=== PATIENT | female | born 1955 | race Caucasian/White ===

== ENCOUNTER → 2021-04-11 09:08 | Outpatient (BNVA) | payer MEDICARE, OTHER, SELFPAY | PROVIDERS: Family Provider Nurse Practitioner Family; PCP Family Medicine; Visit Provider Orthopaedic Surgery | DX: S52.132D Displaced fracture of neck of left radius, subsequent encounter for closed fracture with routine healing (principal); X58.XXXD Exposure to other specified factors, subsequent encounter | CPT/HCPCS: 73080 ==

== ENCOUNTER 2021-05-03 12:52 | Outpatient (CLI) | payer MEDICARE, OTHER, SELFPAY ==
--- NOTE | 2021-05-03 17:54 | ONC CON_ITS ---
Dr. Galicia New Patient Note Patient: Abena Anton Unit #: [id number]: 1955 Dicatated By: Rigo Galicia M.D.Date of Visit: May 03, 2021 Onc MED New Patient/Consult Referring Physician: JESSICA Iqbal Chief Complaint: Anemia. History of Present Illness: This is a 66-year-old woman with iron deficiency anemia. This patient has a longstanding history of anemia. She recalls that when she had her hysterectomy at age 35 it was done primarily because of anemia. She has been seeing Genie Gil for primary care. The available records include a CBC from an emergency room visit on 11/09/2020 which showed her hemoglobin low at 6.2 g with hematocrit 25%. The red cell indices were hypochromic/microcytic with MCV 62.5 and MCH 15.5. The white blood cell count was 6200. The platelet count was slightly elevated at 476,000. She was transfused 1 unit PRBC. At the time she had been taking an iron supplement 3 times a day. She had several subsequent blood counts, all showing similar findings. The most recent, from 04/07/2021 showed moderately severe anemia with hemoglobin 8.7 g and hematocrit 34.0%. The red cell indices were again hypochromic/microcytic. The white blood cell count was 6500 and the platelet count was 467,000. Her ferritin was low at 2 ng/mL, consistent with iron deficiency. She actually has been feeling pretty good generally. She reports having pretty normal energy and normal activity. Her ECOG score is 0. Her appetite has been okay. She has been trying to lose weight. She does not have fever, night sweats, or hot flashes. She has been on antibiotic therapy for sinus infection, and she was also treated for a fever blister. She has not had sore throat or difficulty swallowing. She does not complain of cough, and she has not been having shortness of breath or chest pain. She currently has no GI or complaints. She has not been aware of any blood in the stool or black stools. She has had a previous colonoscopy, and she is scheduled to have EGD and colonoscopy. She has had 3 back surgeries and she does have occasional backache. She has no other joint or bone pain. She does have headaches associated with trigeminal neuralgia. She has no focal neurologic symptoms. She has had some anxiety and depression since her . Past Medical History: Her medical history includes anemia, anxiety, degenerative arthritis, degenerative disease of the spine, depression, hypertension, hypothyroidism, multinodular goiter, and trigeminal neuralgia. Past Surgical History: Her surgical/procedural history includes back surgery x 3, Caesarean section x 2, cerebral microvascular decompression, cholecystectomy, hysterectomy/bilateral salpingectomy-oophorectomy, tubal ligation, and appendectomy in 1965. Medications: Aspirin 81 1 Tablet (of 81 mg) Tablet, chewable Oral daily, buPROPion HCl ER (XL) 1 Tablet (of 350 mg) Tablet SR 24 HR Oral b.i.d., Hjhahqeyxk-LNUG-Qeni-Cod 1 - 2 (79-969-27-30 mg) Capsule Oral PRN, Cyclobenzaprine HCl Tablet Oral, dilTIAZem HCl ER Coated Beads 1 Capsule (of 180 mg) Capsule SR 24 HR Oral daily, Ferrex 150 1 Capsule (of 150 mg) Oral t.i.d., Hair/Skin/Nails Tablet Oral daily, Levothyroxine Sodium 1 Tablet (of 75 mcg) Oral daily, Vitamin 1 Tablet Oral daily, Soma Tablet Oral PRN, valACYclovir HCl 2 Tablet (of 500 mg) Oral b.i.d., Vitamin D2 1 Capsule (of 50 mcg ) Tablet Oral q 2 weeks Allergies: Cyclobenzaprine HCl and traMADol HCl. Social History: Ms. Anton is . She she is a retired educator. She is a non-smoker. She does not drink alcohol. Family History: Father of lung cancer at age 82. Her mother with Alzheimer's dementia. She has 4 sisters, all of whom have diabetes. She is not aware of any history of anemia in the family. Review Of Symptoms: Constitutional - She reports having good energy, and she has normal activity. Her appetite has been okay. She has been trying to lose weight. She does not have fever, night sweats, or hot flashes. ECOG score is 0, Eyes - No change in vision, ENMT - No hearing loss or tinnitus. She has been on treatment for sinus infection, and she also recently had treatment for a fever blister. No sore throat or difficulty swallowing, Hematologic/Lymphatic - No abnormal bruising or bleeding, Respiratory - No shortness of breath. No cough. No pleuritic pain or hemoptysis, Cardiovascular - No angina pain. No palpitations, Gastrointestinal - No nausea or vomiting. No heartburn or acid reflux. No diarrhea or constipation. She has not been aware of any blood in the stool or black stools. She is scheduled to have an EGD and colonoscopy, Genitourinary (F) - No dysuria or hematuria. No urinary frequency. No urgency or incontinence, Musculoskeletal - She has had 3 back surgeries. She occasionally has backache. She has no other joint or bone pain, Integumentary - No skin rash or other skin changes, Neurologic - She still has headaches associated with a trigeminal neuralgia. No dizziness. No numbness or tingling. No other focal neurologic symptoms, Psychiatric - She has had anxiety and depression since her . No insomnia. Vital Signs: Performed on May 03, 2021 15:46: 65.00 in, 164/90 mm(hg) (HIGH), Performed on May 03, 2021 15:45: 3, 0, 34.28 (HIGH), 2.00 sq.m, 98 %, 105 /min (HIGH), 18 /min, 97.6 F (LOW), and 206.0 lbs (HIGH). Physical Examination: Constitutional - She looks a little pale, she otherwise appears to be in good general health, Eyes - Sclerae nonicteric. Conjunctivae clear, ENMT - No lesions noted in the oral cavity, Neck - No mass or thyromegaly, Hematologic/Lymphatic - No cervical, clavicular, or axillary adenopathy, Respiratory - Lungs are clear with good air movement bilaterally, Cardiovascular - Heart rhythm is regular. There is a I/ systolic murmur. There is no gallop or rub noted, Abdomen - Soft and non-tender. Liver and spleen are not enlarged. There is no abdominal mass or ascites noted and there is no inguinal adenopathy, Back/Spine - No spine or CVA tenderness noted, Extremities - No edema. Pedal pulses are palpable bilaterally, Integumentary - No rashes. No suspicious skin lesions noted, Neurologic - No focal neurologic deficits noted. Problem List: 1. Iron deficiency anemia which has not responded to an adequate trial of oral iron supplementation. 2. Hypertension. 3. Hypothyroidism. 4. History of multinodular goiter. 5. Trigeminal neuralgia. 6. Degenerative arthritis/degenerative disease of the spine. 7. Anxiety/depression. Problems Addressed with this Encounter and Plan: Patient with longstanding iron deficiency anemia. The cause is uncertain, but it appears to most likely be due to inadequate oral iron absorption, as she has not had any apparent blood loss and the anemia has not improved despite adequate oral iron replacement. As such, I will arrange for parenteral iron replacement to be administered as an outpatient at [facility], subject to verification of insurance coverage. I will also schedule 4-week interval follow-up CBC and serum iron studies with Genie Gil. Signed By: Rigo Galicia M.D. <<Signature on File>>
== END 2021-05-03 12:53 | disposition home or self-care (01) ==
PROVIDERS: PCP Registered Nurse; Visit Provider Internal Medicine Hematology & Oncology
DX: D50.9 Iron deficiency anemia, unspecified (principal); I10 Essential (primary) hypertension; E03.9 Hypothyroidism, unspecified; G50.0 Trigeminal neuralgia; G31.89 Other specified degenerative diseases of nervous system; F41.9 Anxiety disorder, unspecified; F32.A Depression, unspecified; Z79.899 Other long term (current) drug therapy
CPT/HCPCS: 99204

== ENCOUNTER 2021-06-05 08:11 | Outpatient (CLI) | payer MEDICARE, OTHER, SELFPAY ==
--- NOTE | 2021-06-05 08:29 | MM_ITS ---
WS: [id number] BILATERAL 3D TOMOSYNTHESIS DIGITAL SCREENING MAMMOGRAPHY WITH CAD CLINICAL INFORMATION: SCREENING HISTORY: Screening mammogram. No current complaints. COMPARISON: None. TECHNIQUE: Bilateral CC and MLO views. FINDINGS: Scattered fibroglandular densities bilaterally. No suspicious focal mass, asymmetry, calcifications, or architectural distortion. No evidence of malignancy. MM/[place] [id number] IMPRESSION: BI-RADS: 1-Negative FOLLOW UP: 1 Year Follow-up Recommend return to annual screening mammography.
--- NOTE | 2021-06-05 09:13 | XR_ITS ---
WS: [id number] DEXA (DUAL ENERGY X-RAY ABSORPTIOMETRY) Bone mineral density was performed using a [employer] machine. HISTORY: POSTMENOPAUSAL COMPARISON: None available. Lumbar spine BMD (L1-L4): 0.812 g/cm2 T score: -3.1 Z score: -2.4 Total hip BMD: Left: 0.633 g/cm2. T score: -3.0 Z score: -2.4 Right: 0.652 g/cm2. T score: -2.8 Z score: -2.3 10 year probability of a major osteoporotic fracture is 16%. Mild LEFT lumbar curvature. XR/XR DEXA axial skeleton* [id number] IMPRESSION: OSTEOPOROSIS based upon the WHO classification for females.
== END 2021-06-05 08:12 | disposition home or self-care (01) ==
LOC: RAD 08:14
PROVIDERS: PCP Registered Nurse; Visit Provider Registered Nurse
DX: Z12.31 Encounter for screening mammogram for malignant neoplasm of breast (principal); Z78.0 Asymptomatic menopausal state; M81.0 Age-related osteoporosis without current pathological fracture
CPT/HCPCS: 77063; 77067; 77080

== ENCOUNTER 2023-06-12 14:04 | Outpatient (CLI) | payer MEDICARE, OTHER, SELFPAY ==
--- NOTE | 2023-06-12 14:10 | XR_ITS ---
WS: [id number] DEXA (DUAL ENERGY X-RAY ABSORPTIOMETRY) Bone mineral density was performed using a [employer] machine. HISTORY: OSTEOPOROSIS W/O CURRENT FX COMPARISON: None available. Left forearm BMD: 0.564 g/cm2. T score: -3.6 Z score: -1.9 Total hip BMD: Left: 0.617 g/cm2. T score: -3.1 Z score: -2.4 Right: 0.620 g/cm2. T score: -3.1 Z score: -2.4 10 year probability of a major osteoporotic fracture is 19.0%. Compared to the prior study from 06/05/2021. Bilateral hips bone mineral density has decreased by 3.9%. IMPRESSION: OSTEOPOROSIS based upon the WHO classification for females. Significant decrease in bone mineral density within the hips since the prior study.
--- NOTE | 2023-06-12 14:11 | MM_ITS ---
WS: [id number] BILATERAL 3D TOMOSYNTHESIS DIGITAL SCREENING MAMMOGRAPHY WITH CAD CLINICAL INFORMATION: SCREENING HISTORY: Screening mammogram. No current complaints. COMPARISON: 06/05/2021 TECHNIQUE: Bilateral CC and MLO views. FINDINGS: Scattered fibroglandular densities bilaterally. No suspicious focal mass, asymmetry, calcifications, or architectural distortion. No evidence of malignancy. IMPRESSION: MM/[place] [id number] BI-RADS: 1-Negative FOLLOW UP: 1 Year Follow-up Recommend return to annual screening mammography.
== END 2023-06-12 14:05 | disposition home or self-care (01) ==
LOC: RAD 14:05
PROVIDERS: PCP Registered Nurse; Visit Provider Registered Nurse
DX: Z12.31 Encounter for screening mammogram for malignant neoplasm of breast (principal); M81.0 Age-related osteoporosis without current pathological fracture; R92.323 Mammographic fibroglandular density, bilateral breasts
CPT/HCPCS: 77063; 77067; 77080

== ENCOUNTER 2024-06-18 10:17 | Outpatient (CLI) | payer MEDICARE, OTHER, SELFPAY ==
--- NOTE | 2024-06-18 10:19 | MM_ITS ---
WS: [id number] BILATERAL SCREENING DIGITAL TOMOSYNTHESIS MAMMOGRAM WITH CAD HISTORY: SCREENING COMPARISON: 06/12/2023, 06/05/2021 Bilateral CC and MLO views with tomosynthesis and synthetic mammography submitted. Computer aided detection analyzed. Breast composition: The breasts are almost entirely fatty. No suspicious masses, microcalcifications or architectural distortion. MM/MM scr BI tomosynthesis [id number] IMPRESSION: BI-RADS: 1 - Negative. FOLLOW UP: 1 Year Follow-up
== END 2024-06-18 10:18 | disposition home or self-care (01) ==
PROVIDERS: PCP Registered Nurse; Visit Provider Registered Nurse
DX: Z12.31 Encounter for screening mammogram for malignant neoplasm of breast (principal); R92.313 Mammographic fatty tissue density, bilateral breasts
CPT/HCPCS: 77063; 77067